=== PATIENT | male | born 2000 | race Caucasian/White ===

== ENCOUNTER 2020-11-09 16:11 | Outpatient (CLI) | payer OTHER ==
--- NOTE | 2020-11-09 17:28 | RAD ---
RIGHT SHOULDER THREE VIEWS: Date: 11-09-2020 FINDINGS: No fracture, dislocation, or AC joint widening was seen. On one view there was a hint of a bryanna of b one beneath the glenoid fossa, but the finding is not sufficient to diagnose any acute injury. The sc apula appears intact. IMPRESSION: No definite acute finding. POS: HOME
== END 2020-11-09 16:12 | disposition home or self-care (01) ==
LOC: BURRAD 16:11
PROVIDERS: ATTEND Nurse Practitioner
DX: S46.911A Strain of unspecified muscle, fascia and tendon at shoulder and upper arm level, right arm, initial encounter (principal)